=== PATIENT | female | born 2005 | race Caucasian/White ===

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

== ENCOUNTER 2023-04-04 09:05 | Outpatient (CLI) | payer OTHER, MEDICAID, SELFPAY ==
--- NOTE | ~2023-04-04 | US_ITS ---
EXAMINATION: US thyroid DATE: 04/04/2023 09:29 INDICATION: Thyroid nodule. TECHNIQUE: Multiple ultrasound images of the thyroid were obtained. COMPARISON: None. FINDINGS: The right thyroid lobe measures 4.1 x 1.4 x 1.4 cm. The left thyroid lobe measures 4.9 x 1.3 x 1.4 c m. There is normal echotexture and echogenicity throughout the thyroid gland. No discrete nodules id entified. Normal vascular flow is present. IMPRESSION: 1. Normal thyroid. Reviewed, dictated and finalized at location A. IMPRESSION: 1. Normal thyroid.
== END 2023-04-04 09:06 | disposition home or self-care (01) ==
LOC: ANHIMG 09:06
PROVIDERS: PCP Family Medicine; Visit Provider Obstetrics & Gynecology Gynecology
DX: E04.1 Nontoxic single thyroid nodule (principal)
CPT/HCPCS: 76536

== ENCOUNTER 2023-09-22 15:17 | Outpatient (CLI) | payer OTHER, MEDICAID, SELFPAY ==
[2023-09-22 15:33] LABS: Basophils Absolute Auto 0.1 K/mm3 (0.0-0.1); Basophils Percent Auto 0.6 % (0.2-1.2); Eosinophils Absolute Auto 0.2 K/mm3 (0-0.3); Eosinophils Percent Auto 1.4 % (0-4.4); Hematocrit 41.2 % (37.0-47.0); Hemoglobin 13.2 g/dL (12.0-15.0); Immature Granulocyte Absolute 0.03 K/mm3 (0.00-0.031); Immature Granulocyte Percent A 0.3 % (0-0.5); Lymphocytes Absolute Auto 2.62 K/mm3 (0.9-3.2); Lymphocytes Percent Auto 23.3 % (18.3-44.2); Mean Corpuscular Hemoglobin 29.4 pg (26-34); Mean Corpuscular Volume 91.8 fl (80-100); Mean Platelet Volume 9.4 fl (7.4-10.4); Monocytes Absolute Auto 0.6 K/mm3 (0.1-0.6); Monocytes Percent Auto 5.5 % (2.6-8.5); Neutrophils Absolute Auto 7.8 K/mm3 (1.3-6.7); Neutrophils Percent Auto 68.9 % (45.5-73.1); Platelet Count Result 380 k/mm3 (150-375); Red Blood Count 4.49 M/mm3 (4.2-5.4); Red Cell Distribution Width 12.3 % (11.5-14.5); White Blood Count 11.3 K/mm3 (4.5-10.0)
[2023-09-22 15:41] LABS: Appearance Urine Clear (Clear); Bacteria Urine None Seen /hpf; Bilirubin Urine Negative (Negative); Blood Urine 1+ (Negative); Color Urine Yellow (Yellow); Glucose Urine UA Negative (Negative); Ketones Urine Negative (Negative); Leukocyte Esterase Ur Trace LEU/UL (NEGATIVE); Nitrate Urine Negative (Negative); Non Pathogenic Casts 0-2; Protein Urine Negative (Negative); RBC Urine 0-2 /hpf (0-2); Specific Grav Ur 1.008 (1.001-1.035); Squamous Epithelial Cell Urine None seen /hpf (Few); Urobilinogen Urine 0.2 mg/dL (<2.0); pH Urine 5.5 (5.0-9.0)
[2023-09-22 15:43] LABS: Add Urine Microscopic? YES; Pregnancy On Board Control Positive; Urine Pregnancy Test Negative
[2023-09-22 16:26] LABS: Alanine Aminotransferase 14 U/L (6-35); Albumin Level 4.1 g/dL (3.7-5.6); Alkaline Phosphatase 87 U/L (45-116); Anion Gap 7 mmol/L (8-16); Aspartate Amino Transferase 20 U/L (14-36); Bilirubin,Total 0.5 mg/dL (0.2-1.3); Blood Urea Nitrogen 18 mg/dL (8-21); Calcium 9.1 mg/dL (8.9-10.7); Carbon Dioxide 28 mmol/L (22-30); Chloride 99 mmol/L (98-107); Cholesterol 122 mg/dL (0-200); Estimated Glomerular Filt Rate > 60; Glucose 90 mg/dL (65-110); HDL Direct 38 mg/dL; LDL Cholesterol Direct 71 mg/dL; Potassium 3.6 mmol/L (3.4-5.0); Sodium 134 mmol/L (134-143); Triglycerides 78 mg/dL (<150)
== END 2023-09-22 15:18 | disposition home or self-care (01) ==
LOC: ANHLAB 15:18
PROVIDERS: PCP Nurse Practitioner Family; Visit Provider Nurse Practitioner Family
DX: Z00.00 Encounter for general adult medical examination without abnormal findings (principal); Z13.29 Encounter for screening for other suspected endocrine disorder; R10.30 Lower abdominal pain, unspecified; Z13.6 Encounter for screening for cardiovascular disorders; Z13.0 Encounter for screening for diseases of the blood and blood-forming organs and certain disorders involving the immune mechanism
CPT/HCPCS: 36415; 80053; 80061; 81001; 81003; 81025; 84443; 85025

== ENCOUNTER 2023-09-25 10:41 | Outpatient (CLI) | payer OTHER, MEDICAID, SELFPAY ==
--- NOTE | ~2023-09-25 | CT_ITS ---
EXAMINATION: CT abdomen pelvis wo con DATE: 09/25/2023 10:58 INDICATION: Right lower quadrant abdominal pain. Hematuria. TECHNIQUE: Computed tomography (CT) of the abdomen and pelvis was performed without intravenous contr ast. Automated exposure control and iterative reconstruction technique were employed. The dose-length product was 183.41 mGy-cm. COMPARISON: None. FINDINGS: The visualized portions of the lung bases are clear without pneumonia or pleural effusion. The heart size is normal. No pericardial effusion. The liver is normal. The gallbladder is contracted . The spleen, pancreas, adrenal glands, and kidneys are normal. There is no urolithiasis. There is an intrauterine device in expected position. There is are no dilated loops of bowel. The visualized por tion of the appendix is normal. There are no pathologically enlarged lymph nodes. There is physiologi c fluid in the pelvis. There is levoscoliosis of thoracolumbar spine. IMPRESSION: 1. No etiology for the patient's symptoms. Reviewed, dictated and finalized at location E. TRUCK DRIVER
== END 2023-09-25 10:42 | disposition home or self-care (01) ==
LOC: ANHIMG 10:44
PROVIDERS: PCP Nurse Practitioner Family; Visit Provider Nurse Practitioner Family
DX: R10.31 Right lower quadrant pain (principal); R31.9 Hematuria, unspecified
CPT/HCPCS: 74176

== ENCOUNTER 2023-10-01 11:43 | Emergency (ER) | payer OTHER, MEDICAID, SELFPAY ==
[2023-10-01 11:45] VITALS: BP 110/62; PULSE 99; RESP 18; TEMP 36.7; O2SAT 100
[2023-10-01 12:00] LABS: Basophils Absolute Auto 0.1 K/mm3 (0.0-0.1); Basophils Percent Auto 0.7 % (0.2-1.2); Eosinophils Absolute Auto 0.1 K/mm3 (0-0.3); Eosinophils Percent Auto 1.2 % (0-4.4); Hematocrit 40.2 % (37.0-47.0); Hemoglobin 13.3 g/dL (12.0-15.0); Immature Granulocyte Absolute 0.03 K/mm3 (0.00-0.031); Immature Granulocyte Percent A 0.4 % (0-0.5); Lymphocytes Absolute Auto 2.16 K/mm3 (0.9-3.2); Lymphocytes Percent Auto 25.7 % (18.3-44.2); Mean Corpuscular HGB Conc 33.1 g/dl (32-36); Mean Corpuscular Hemoglobin 30.1 pg (26-34); Mean Platelet Volume 9.1 fl (7.4-10.4); Monocytes Absolute Auto 0.6 K/mm3 (0.1-0.6); Monocytes Percent Auto 7.3 % (2.6-8.5); Neutrophils Absolute Auto 5.4 K/mm3 (1.3-6.7); Neutrophils Percent Auto 64.7 % (45.5-73.1); Platelet Count Result 407 k/mm3 (150-375); Red Blood Count 4.42 M/mm3 (4.2-5.4); Red Cell Distribution Width 12.1 % (11.5-14.5); White Blood Count 8.4 K/mm3 (4.5-10.0)
[2023-10-01 12:13] LABS: Alanine Aminotransferase 14 U/L (6-35); Albumin Level 4.1 g/dL (3.7-5.6); Alkaline Phosphatase 86 U/L (45-116); Anion Gap 8 mmol/L (8-16); Aspartate Amino Transferase 23 U/L (14-36); Bilirubin,Total 0.4 mg/dL (0.2-1.3); Blood Urea Nitrogen 12 mg/dL (8-21); Carbon Dioxide 27 mmol/L (22-30); Chloride 105 mmol/L (98-107); Estimated Glomerular Filt Rate > 60; Glucose 85 mg/dL (65-110); Lipase 80 U/L (23-300); Potassium 4.4 mmol/L (3.4-5.0); Sodium 140 mmol/L (134-143)
[2023-10-01 13:05] LABS: Appearance Urine Cloudy (Clear); Bacteria Urine 1+ /hpf; Bilirubin Urine Negative (Negative); Blood Urine 3+ (Negative); Color Urine Dark Yellow (Yellow); Glucose Urine UA Negative (Negative); Ketones Urine Trace mg/dL (Negative); Leukocyte Esterase Ur 1+ LEU/UL (Negative); Nitrate Urine Negative (Negative); Non Pathogenic Casts 0-2; Protein Urine 1+ mg/dL (Negative); Specific Grav Ur 1.035 (1.001-1.035); Squamous Epithelial Cell Urine Moderate /hpf (Few); WBC Urine 51-100 /hpf
[2023-10-01 13:10] LABS: Add Urine Microscopic? YES
--- NOTE | 2023-10-01 13:29 | ED.ABDPAIN ---
HPI - Abdominal Pain General Chief Complaint: Abdominal Pain Stated Complaint: abdomen pain Time Seen by Provider: 10/01/23 12:46 History of Present Illness HPI narrative: Patient is a 17-year-old female presenting with abdominal pain. States that she has noted right-sided lower abdominal pain for the last week. She saw her PCP earlier this week who ordered blood work and a CT scan. Everything was unremarkable but she continued to have right-sided abdominal pain. States that she has been urinating more frequently than normal but denies dysuria. No nausea or vomiting. No diarrhea or constipation. No further complaints. Related Data Allergies Allergy/AdvReac Type Severity Reaction Status Date / Time No Known Allergies Allergy Unknown Verified 10/01/23 12:56 Review of Systems Review of Systems: All systems reviewed & are unremarkable except as noted in HPI and below PMFSH Past Medical History Medical History Anxiety Anxiety and depression Blood in urine Body mass index (BMI) of 19.0 to 19.9 in adult Constipation Encounter to establish care Low back pain Overweight (BMI 25.0-29.9) Pharyngitis and not yet delivered Weight loss, non-intentional Normal thyroid ultrasound on 04/04/2023. Surgical History Surgical History Hx of tonsillectomy 2009 [place] teeth removed 2019 Family History Family History Mother Depression Anxiety Grandparent Diabetes mellitus Heart disease Social History Social History Smoking status: Never smoker Tobacco type: e-cigarettes/vaping Alcohol intake: current Alcohol use details: social drinker prior to Substance use: never Substance use type: does not use Lack of Transportation: No Lack of Food: Never True Current Housing: I Have Housing Concerned About Future Housing: No Difficulty Paying Gas/Electric Bills: No Difficulty Paying for Meds: No Currently Unemployed: No Education: Don't Know Difficulty w/ Childcare or Family Care: No Gender identity (if verbalized by the patient): Female Spiritual care concerns: No Exam Narrative: GENERAL: Well-appearing, well-nourished, and in no acute distress. HEAD: Normocephalic, atraumatic. EYES: PERRLA and EOMI. ENT: Mucous membranes moist. NECK: Supple. CHEST: Clear to auscultation. No respiratory distress. HEART: Regular rate and rhythm ABDOMEN: Soft, nontender, nondistended EXTREMITIES: Normal range of motion. No edema. SKIN: Warm, dry, no rash. NEURO: No focal deficits. Alert and oriented x3. PSYCH: Normal mood and affect. Course Vital Signs Vital signs: Vital Signs Temperature 98.0 F 10/01/23 11:45 Pulse Rate 99 10/01/23 11:45 Respiratory Rate 18 10/01/23 11:45 Blood Pressure 110/62 10/01/23 11:45 Pulse Oximetry 100 10/01/23 11:45 Oxygen Delivery Room Air 10/01/23 11:45 Temperature 98.0 F 10/01/23 11:45 Pulse Rate 99 10/01/23 11:45 Respiratory Rate 18 10/01/23 11:45 Blood Pressure 110/62 10/01/23 11:45 Pulse Oximetry 100 10/01/23 11:45 Oxygen Delivery Room Air 10/01/23 11:45 MDM - Abdominal Pain MDM Narrative Medical decision making narrative: 17-year-old female presenting with abdominal pain. Vitals are stable. Exam is unremarkable. Blood work is unremarkable. No leukocytosis. Reviewed the chart from earlier this week. The CT abdomen pelvis showed no acute abnormalities. Her appendix was normal. Her UA is concerning for UTI. Will start her on Keflex. Advised PCP follow-up. Appropriate return precautions given. Patient is agreeable with this plan. Discharged in stable condition. Differential Diagnosis Differential diagnosis: Likely abdominal pain, constipation, gastroen
[2023-10-01] MEDS: CEPHALEXIN 500 MG CAPSULE PO (13:37)
== END 2023-10-01 14:32 | disposition home or self-care (01) ==
PROVIDERS: Emergency Medicine; Emergency Provider Emergency Medicine; PCP Nurse Practitioner Family
DX: N39.0 Urinary tract infection, site not specified (principal)
CPT/HCPCS: 36415; 80053; 81001; 81025; 83690; 85025; 87086; 99283; A9270

== ENCOUNTER 2023-11-09 00:35 | Day surgery (SDC) | payer OTHER, SELFPAY ==
[2023-11-02 15:12] VITALS: BMI 20.1
--- NOTE | 2023-11-02 15:16 | PC.NURSE ---
Report to the Outpatient Waiting Room, entrance under the green pavilion located off [facility], at time 1200 on date 11/09/23. Planned Procedure Time: 1400. Time changes happen often and if your time is changed the preop area will call you the afternoon before. - You and your visitor will be asked to self-screen and do not enter if you have any COVID symptoms. - A mask is optional within the hospital at this time. Patients may have clear liquids (water, carbonated beverages, clear teas, apple juice) until 3 hours prior to surgery with a maximum of 20 ounces. - No food from midnight until time of surgery Take the following medications with a SIP of water the morning of surgery: N/A DO NOT STOP ANY OF YOUR OTHER PRESCRIPTION MEDICATIONS PRIOR TO SURGERY ?EXCEPT THE FOLLOWING Medications to discontinue per physician: N/A Date to take last dose: N/A Please no make-up, nail ukrainian, hairspray, perfume, deodorant, or body powder the day of surgery. No jewelry (including any body piercings) or valuables the day of surgery, leave them at home. Please take a shower or bath the night before, or the morning of, surgery with an antibacterial soap. Wear comfortable, loose fitting clothing. - Jewelry must be removed prior to entering the operating room. Rings and piercings that are not removed may be cut off. - The hospital will not accept responsibility for valuables. - Please leave all valuables, including medications, at home the day of surgery. If you are going home after surgery, a licensed regional company truck driver must drive you home. - NO public transportation without another adult if you receive anesthesia. - We recommend that an adult stay with you for 24 hours following discharge. - We also recommend that you do not drive, make important decision, drink alcoholic beverages, or take any drugs that were not prescribed by your health care provider for at least 24 hours after your discharge time. Follow any additional instructions given to you from your surgeon. If you or anyone in your household have experienced Covid symptoms in the past week, please notify your surgeon or the nurse liaison at the phone number below for possible testing. Telephone instructions given to PT Hali FELTON and asked if any additional questions and then verbalized understanding. Patient advised to call surgeon office or pre surgery nurse liaison [phone] if any additional questions.
[2023-11-09] VITALS (7 sets, daily range): BP systolic 120–131; BP diastolic 57–86; PULSE 67–109; RESP 16–18; TEMP 36.2–36.7; O2SAT 98–100
[2023-11-09] MEDS: LACTATED RINGERS 1,000 ML 30 ML IV CONT ×2 (12:13→14:05)
[2023-11-09] MEDS: LIDO 1%/EPINEPHRINE 1:100,000 50 ML VIAL 30 ML INFILTRATE (12:14)
--- NOTE | 2023-11-09 12:44 | WPDHPUPDATE1 ---
History and Physical Update Update Date/Time: 11/09/23 12:44 History and Physical has been reviewed, including an updated exam of the patient. There are NO changes in the patient's condition. Risks, benefits, and alternatives have been discussed and questions answered. Patient agrees to proceed with procedure.
--- NOTE | 2023-11-09 12:54 | W.PM.PROC2 ---
Procedure Note - Detailed Date of Procedure 11/09/23 Pre-op Diagnosis micromastia Post-op Diagnosis Same Procedure Performed Bilateral Augmentation Mammaplasty Surgeon Jesse Rutledge MD Anesthesia General Findings Bilateral Jhony Turcios SoftTouch 415 cc Right - REF# [id number] SN [id number] Left - REF# [id number] SN [id number] Description of Procedure She is here today for bilateral breast augmentation. Previously and again today the risks, benefits, alternatives were discussed in extensive detail. I wanted her to be very realistic about the risks involved as well as expectations. We discussed aftercare and what to monitor for. Made sure answered all of her questions to her satisfaction today and consent was obtained. Marked in the preoperative holding area with their verification. The patient was taken to the operating room placed supine on the operating table. Anesthesia was provided by anesthesiology. A surgical time-out was taken. We cleansed the skin and 1% lidocaine and 0.25% Marcaine with epinephrine was used anesthetize as a field block. She was prepped and draped in a standard sterile fashion. Tegaderm nipple Steinberg were placed. A 15 blade used to make an incision along the inframammary fold. Dissection was continued at 45 degree angle until the chest wall as identified. I incised the pectoralis major along its inferior border and completely released the inferior border leaving the medial border intact. I created a subpectoral pocket in the appropriate dimensions based on our preoperative planning for the implant. I then copiously irrigated with saline solution and verified a strict hemostasis. Next the use a triple antibiotic and Betadine containing solution to irrigate the pocket. I washed my gloves with the triple antibiotic and Betadine solution. We washed the implant immediately upon opening it with this solution and only opened it when we needed it. I used implant funnel and no-touch technique. The implant was introduced into the pocket using the funnel. Having verified positioning of the implant this was closed using 2-0 PDS followed by 3-0 Monocryl in a running subcuticular 4-0 Monocryl followed by tissue glue. Fluffs and surgical bra were placed. Patient was awoke and taken to PACU without difficulty. All instrument sponge counts were correct at the end of the case. Estimated Blood Loss 25 Drains No Packing No Pathology None sent Complications No immediate complications Condition Stable Disposition PACU
--- NOTE | 2023-11-09 13:08 | WPDANESEPPF ---
Anes - Initial Pre Proc Eval Procedure: Operation Date: 11/09/23 14:00 Proposed Procedures p Bilateral Breast Augmentation - Jesse Rutledge MD Date/Time: 11/09/23 13:08 Surgeon: Jesse Rutledge MD Pre Op Diagnosis: micromastia Patient Data Age: 17 Gender: F Height: 1.57 m Weight: 49.4 kg Last Vital Signs Temp 98.0 F 11/09/23 12:14 Pulse 87 11/09/23 12:14 Resp 16 11/09/23 12:14 BP 120/67 11/09/23 12:14 Pulse Ox 100 11/09/23 12:14 O2 Del Method Room Air 11/09/23 12:14 Allergies Allergy/AdvReac Type Severity Reaction Status Date / Time No Known Allergies Allergy Unknown Verified 11/09/23 12:01 Home Medications Medication Instructions Recorded Confirmed Type No Home Medications 11/02/23 11/02/23 History Patient hx anesthesia problems: none Family hx anesthesia problems: none Results Review: All pre-operative results and documents have been reviewed as part of the pre-operative evaluation. [facility] Past Medical History Medical History Anxiety Anxiety and depression Blood in urine Body mass index (BMI) of 19.0 to 19.9 in adult Constipation Encounter to establish care Low back pain Overweight (BMI 25.0-29.9) Pharyngitis and not yet delivered Weight loss, non-intentional Normal thyroid ultrasound on 04/04/2023. 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 Alcohol intake: current Drinks per week: 4 Alcohol use details: WEEKENDS Substance use: never Substance use type: does not use Lack of Transportation: No Lack of Food: Never True Current Housing: I Have Housing Concerned About Future Housing: No Difficulty Paying Gas/Electric Bills: No Difficulty Paying for Meds: No Currently Unemployed: No Education: Don't Know Difficulty w/ Childcare or Family Care: No Living arrangements: with family Gender identity (if verbalized by the patient): Female Spiritual care concerns: No Anes - Eval Final PreProcedure Day of Procedure 11/09/23 13:08 Patient weight: normal Heart: regular rate and rhythm Lungs: clear to auscultation Airway: Mallampati scale class II Neurological: alert and oriented Last oral intake: >/= 8 hours ASA classification: II Emergent: no Anesthetic plan: proceed Anesthesia type and monitoring: general LMA and standard monitoring Results Review: All pre-operative results and documents have been reviewed as part of the pre-operative evaluation. Informed Consent: The patient's anesthetic plan and its attendant risks and benefits were discussed with the patient/family/POA. Questions were solicited and answers provided to the satisfaction of the patient/family/POA.
[2023-11-09] MEDS: ceFAZolin 2 GM/D5W 50 ML 2 GM/50 ML BAG IVPB (13:14)
[2023-11-09] MEDS: BUPivacaine HCL 0.25% PF 30 ML VIAL INFILTRATE (13:14)
[2023-11-09] MEDS: NACL 0.9% IRRIG POUR BOTTLE 900 ML, GENTAMICIN SULFATE INJ 160 MG, ceFAZolin 2 GM, POVI... IRRIGATION (13:14)
[2023-11-09] MEDS: TRANEXAMIC ACID 1,000MG/ISO100 1,000 MG/100 ML BAG 200 MG IVPB (13:21)
[2023-11-09] MEDS: fentaNYL CITRATE INJ (*CRX) 100 MCG/2 ML VIAL 25 MCG IV PUSH ×8 (14:17→14:39)
[2023-11-09] MEDS: ONDANSETRON INJ 4 MG/2 ML VIAL IV PUSH (14:31)
[2023-11-09] MEDS: oxyCODONE (*CRX) 5 MG/5 ML ORAL SOLN IR PO (15:17)
== END 2023-11-09 15:53 | disposition home or self-care (01) ==
PROVIDERS: PCP Nurse Practitioner Family; Visit Provider Surgery Plastic and Reconstructive Surgery
PROC: (CPT 19325; principal; 2023-11-09 14:00)
DX: Z41.1 Encounter for cosmetic surgery (principal); N64.82 Hypoplasia of breast; F41.8 Other specified anxiety disorders; Z98.890 Other specified postprocedural states; Z87.891 Personal history of nicotine dependence; Z82.49 Family history of ischemic heart disease and other diseases of the circulatory system
CPT/HCPCS: 19325; A9270; J0690; J1580; J2250; J2405; J3010; J7120

== ENCOUNTER 2024-07-22 15:27 | Emergency (ER) | payer OTHER, SELFPAY ==
[2024-07-22 15:36] VITALS: BP 105/62; PULSE 83; RESP 16; TEMP 36.9; O2SAT 100
--- NOTE | 2024-07-22 16:25 | ED.NAVMDI ---
HPI - Nausea/Vomiting/Diarrhea General Chief complaint: Nausea/Vomiting/Diarrhea Stated complaint: Headache/Light Headed/Diarrhea Time Seen by Provider: 07/22/24 15:50 Source: patient and RN notes reviewed Mode of arrival: ambulatory Limitations: no limitations History of Present Illness HPI Narrative: Patient presents today complaining of a 2 week history of headache that waxes and wanes. Today she woke up a bit lightheaded with diarrhea and nausea. She has had 3 episodes of diarrhea today that are loose in nature. Denies any blood or mucus. No fever, abdominal pain or vomiting. She has been able to drink plenty today and deep breakfast. She took some Tylenol today for her headache which has been helpful. No history of migraines or chronic headaches. Related Data Home Medications Medication Instructions Recorded Confirmed buspirone 5 mg tablet 5 mg PO DAILY 07/22/24 07/22/24 Allergies Allergy/AdvReac Type Severity Reaction Status Date / Time No Known Allergies Allergy Unknown Verified 07/22/24 15:43 Review of Systems Review of Systems: CONSTITUTIONAL: Denies body aches, fever, chills, or sweats. EYES: Denies visual changes, redness, or discharge. ENT: Denies rhinorrhea, congestion, sore throat, or otalgia. CARDIOVASCULAR: Denies chest pain, palpitations, or edema. RESPIRATORY: Denies cough or dyspnea. GASTROINTESTINAL: Denies abdominal pain, vomiting. + nausea, diarrhea GENITOURINARY: Denies dysuria or hematuria. SKIN: Denies rash, itching, or wounds. MUSCULOSKELETAL: Denies back pain, joint pain, or myalgia. NEUROLOGIC: Denies numbness, tingling, or weakness.+ headache, lightheadedness PSYCH: Denies depression or anxiety. [facility] Past Medical History Medical History Anxiety Anxiety and depression Blood in urine Body mass index (BMI) of 19.0 to 19.9 in adult Constipation Dysuria Encounter to establish care Low back pain Overweight (BMI 25.0-29.9) Pharyngitis and not yet delivered Weight loss, non-intentional Normal thyroid ultrasound on 04/04/2023. 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 Alcohol intake: current Drinks per week: 4 Alcohol use details: WEEKENDS Substance use: never Substance use type: does not use Lack of Transportation: No Lack of Food: Never True Current Housing: I Have Housing Concerned About Future Housing: No Difficulty Paying Gas/Electric Bills: No Difficulty Paying for Meds: No Currently Unemployed: No Education: Don't Know Difficulty w/ Childcare or Family Care: No Living arrangements: with family Gender identity (if verbalized by the patient): Female Spiritual care concerns: No Comments At time of signature, I have reviewed and agree with nursing past medical, surgical, social and family history unless otherwise noted. Please see nursing chart for further information. There is no relevant family history pertinent to the presenting complaint Exam Narrative: GENERAL: Well-appearing, well-nourished, and in no acute distress. HEAD: Normocephalic, atraumatic. EYES: EOMI. PERRL. No nystagmus. No redness or drainage. Conjunctivae normal. ENT: Mucous membranes pink and moist. Nares clear. No rhinorrhea. Throat normal. Uvula midline. NECK: Normal AROM. Supple. No lymphadenopathy. CHEST: No respiratory distress. Clear to auscultation. HEART: Regular rate and rhythm. No murmur appreciated. ABDOMEN: Soft, nontender, nondistended, normal active bowel sounds. EXTREMITIES: Normal range of motion. No edema. SKIN: Warm, dry, no rash. Capillary refill normal. Normal skin turgor. NEURO: No focal deficits. Alert and oriented x3. Gait steady. PSYCH: Normal affect. No signs of depression or anxiety. Course Course Level of Care: Express Care Visit Vital Signs Vital signs: Vital Signs Temperature 98.4 F 07/22/24 15:36 Pulse Rate 83 07/22/24 15:36 Respiratory Rate 16 07/22/24 15:36 Blood Pressure 105/62 07/22/24 15:36 Pulse Oximetry 100 07/22/24 15:36 Oxygen Delivery Room Air 07/22/24 15:36 Temperature 98.4 F 07/22/24 15:36 Pulse Rate 83 07/22/24 15:36 Respiratory Rate 16 07/22/24 15:36 Blood Pressure 105/62 07/22/24 15:36 Pulse Oximetry 100 07/22/24 15:36 Oxygen Delivery Room Air 07/22/24 15:36 Review MDM - Nausea/Vomiting/Diarrhea MDM Narrative Medical decision making narrative: Patient agrees to follow-up with her PCP regarding her headache. This is not the worst headache she has ever had. It is helped with Tylenol. Diarrhea is likely self-limiting. Prescription for Zofran sent to pharmacy for nausea. Discussed staying hydrated and following up with PCP in 1 week if diarrhea symptoms persist. ED precautions given. Differential Diagnosis Differential diagnosis: Likely food poisoning, gastroenteritis, dehydration and other (Cluster headache, tension headache, migraine) Critical Care Time Critical Care Time Critical Care Time: No Discharge Plan Discharge Clinical Impression: Diarrhea Qualifiers: Diarrhea type: unspecified type Qualified Code(s): R19.7 - Diarrhea, unspecified Headache Qualifiers: Headache type: unspecified Headache chronicity pattern: episodic headache Intractability: not intractable Qualified Code(s): R51.9 - Headache, unspecified Patient Disposition: Home, Self-Care Condition: Stable Instructions: Acute Headache (DC), Acute Diarrhea (ED) Additional Instructions: Your diarrhea should resolve on its own within 1 week. If does not, please follow-up with your PCP for further evaluation. As discussed, if your diarrhea symptoms worsen to include blood or mucus in your stool, severe abdominal pain, fever greater than 100.3, or feelings of dehydration, please go to the ER immediately for further evaluation. Take the Zofran if needed for nausea or vomiting. Rest and stay hydrated. Take Tylenol or ibuprofen for your headache. Please follow-up with your PCP regarding the persistent nature of your headache. Prescriptions: New ondansetron 4 mg tablet,disintegrating 4 mg PO TID PRN (Reason: nausea and vomiting) Qty: 15 0RF No Action buspirone 5 mg tablet 5 mg PO DAILY meclizine 25 mg tablet 25 mg PO TID PRN (Reason: dizziness) Qty: 30 0RF Follow-up/Referrals: John Eisenberg MD [Primary Care Provider] - Stand Alone Forms: Work/School Release IP Time of Disposition: 16:03
== END 2024-07-22 16:06 | disposition home or self-care (01) ==
PROVIDERS: Emergency Provider Nurse Practitioner; PCP Family Medicine
DX: R19.7 Diarrhea, unspecified (principal); R51.9 Headache, unspecified; Z87.891 Personal history of nicotine dependence; F41.9 Anxiety disorder, unspecified
CPT/HCPCS: 99213; G0463

== ENCOUNTER 2024-09-24 14:47 | Outpatient (CLI) | payer MEDICAID, SELFPAY ==
--- OUTSIDE RECORDS SUMMARY | 2024-09-24 14:51 | XMS_ITS | Clinical Summary ---
Author Organization [facility] Address [address] [place] [address] Care Team Providers Care Svp Chief Marketing Officer Name Role Phone Abdi Carlisle MD Primary Care Provider + [phone] Source Comments [facility],non-owned Affiliates and Associated Physician Practices is amultiple site organization consisting of ambulatory clinics and hospital sitesin [place], [place], [place] and [place]. This disclosure is being madepursuant to the Care Everywhere program and may not contain all information available regarding this patient. Last updated 18.[facility] [employer] Social History Tobacco Use Types Packs/Day Years Used Date Smoking Tobacco: Never Assessed Sex and Gender Information Value Date Recorded Sex Assigned at Not on file Gender Identity Not on file Sexual Orientation Not on file Plan of Treatment Health Maintenance Due Date Last Done Comments HIV SCREENING 12/10/2018 HPV VACCINE (1 - 3-dose series) 12/10/2018 CHLAMYDIA/GONORRHEA SCREENING 2019 MENINGOCOCCAL (Group B) VACC INE (1 of 2 - Standard) 2019 HEPATITIS C SCREENING 12/06/2021 DTAP/TDAP/TD VACCINES (1 - Tdap) 12/10/2022 HEPATITIS B VACCINE (1 of 3 - 19+ 3-dose series) 12/10/2022 COVID-19 VACCINE ( - 2023-2 5 season) 2024 INFLUENZA VACCINE (#1) 2024 DEPRESSION SCREENING 08/21/2024 ZOSTER VACCINE (1 of 2) 12/10/2053 HIB VACCINE Aged Out No longer eligi ble based on patient's age to complete this topic MENINGOCOCCAL VACCINE Aged Out No nazia iva eligible based on patient's age to complete this topic PNEUMOCOCCAL VACCINE Aged Out No long er eligible based on patient's age to complete this topic Care Teams Svp Chief Marketing Officer Relationship Specialty Start Date End Date Abdi Carlisle MD [address] [place], [place] [id number] PCP - General Pediatrics 04/14/21
--- OUTSIDE RECORDS SUMMARY | 2024-09-24 14:51 | XMS_ITS | Clinical Summary ---
Author Organization [facility] Address [address] [place] [address] Care Team Providers Care Wood Experimental Mechanic Name Role Phone Abdi Carlisle MD Primary Care Provider [phone] Allergies No known active allergies Medications ondansetron (ZOFRAN) 4 mg tablet Take 1 tablet (4 mg total) by mouth every 6 (six) hours 28 tablet 12/03/2021 Active emtricitabine-te nofovir disoproxil fumerate (TRUVADA) 200-300 mg per tablet Take 1 tablet by mouth daily 30 tablet 12/03/2021 Active metroNIDAZOLE (FLAGYL) 500 mg tablet Take 1 tablet (500 mg total) by mouth 2 (two) times a day 14 tablet 12/03/2021 Active raltegravir (ISENTRESS) 400 mg tablet Take 1 tablet (400 mg total) by mouth 2 (two) times a day 60 tablet 12/03/2021 Active doxycycline (VIBRAMYCIN) 100 mg capsule Take 1 tablet/caps ule (100 mg total) by mouth 2 (two) times a day 20 capsule 12/03/2021 Active Social History Tobacco Use Types Packs/Day Years Used Date Smoking Tobacco: Never Assessed Personal Safety Answer Date Recorded Getting School Help Needed Not on file 10/21 Comments No Sex and Gender Information Value Date Recorded Sex Assigned at Not on file Legal Sex Female 7:51 PM CDT Gender Identity Not on file Sexual Orientation Not on file Last Filed Vital Signs Vital Sign Reading Time Taken Comments Blood Pressure 138/63 12/02/2021 8:14 PM CDT Pulse 120 12/02/2021 8:14 PM CDT Temperature 36.2 ??C (97.2 ??F) 12/02/2021 8:14 PM CD T Respiratory Rate 18 12/02/2021 8:14 PM CDT Oxygen Saturation 100% 12/02/2021 8:15 PM CDT Inhaled Oxygen Concentration - - Weight 62.6 kg (138 lb) 12/02/2021 8:15 PM CDT Height 167.6 cm (5' 6 ) 12/02/2021 8:15 PM CDT Body Mass Index 22.27 12/02/2021 8:15 PM CDT Plan of Treatment Health Maintenance Due Date Last Done Comments Depression Screening 2003 DTaP/Tdap/Td Vaccine (1 - Tdap) 12/10/2014 Varicella Vaccines (1 of 2 - 13+ 2-dose series) 12/10/2016 HPV Vaccines (1 - 3-dose series) 12/10/2018 Meningococcal B Vaccine (1 o f 2 - Patient Seeks Protection) 2019 Hepatitis B Screening 12/10/2021 Regular Well Visit/Exam 18-64 12/10/2021 Influenza Vaccine (#1) 2024 Hepatitis C Screening Completed 12/03/2021 Meningococcal Vaccine Aged Out No nazia iva eligible based on patient's age to complete this topic Pneumococcal vaccine <65 Aged Out No longer eligible based on patient's age to complete this topic Procedures Procedure Name Priority Date/Time Associated Diagnosis Comments HEPATITIS PANEL, ACUTE Routine 12/03/2021 12:31 AM CDT from Last 3 Months or Most Recently Relevant to Health Maintenance Results * Hepatitis panel, acute (12/03/2021 12:31 AM CDT) Hep A IgM Nonreactive Nonreactive AKRINA ROSENBERG (CHIQUITA) Comment: Interpretive Data: If Hep A IgM Ab is reported as Equivocal, a new sample should be drawn in two weeks for testing. Current interpretive data was last revised on 19. Testing performed by: [facility], [address] [place] [address], [place]., [address] Hep B core IgM Nonreactive Nonreactive Siomara ROSENBERG ([place]ITA) Comment: Interpretive Data If HepB Core IgM Ab is reported as Equivocal, a new sample should be drawn in two weeks for testing. Current interpretive data was last revised on 19. Testing performed by: [address] [address] Hep C Ab Nonreactive Nonreactive KARINA ROSENBERG ([place]) Comment: Interpretive Data Nonreactive: Antibodies to HCV not detected. Does NOT exclude the possibility of recent exposure to HCV. Equivocal: Equivocal for HCV antibodies. Supplemental molecular testing will be automatically performed to determine infection status in accordance with current CDC screening recommendations. ?? Reactive: Positive for HCV antibodies. ??This may represent current or past HCV infection. Supplemental molecular testing will be automatically performed to determine ??current infection status in accordance with current CDC screening recommendations. Interpretive data was last revised on 2019. Testing performed by: [facility], [address] [place] [address]., [id number] HepBsAg Nonreactive Nonreactive KARINA ROSENBERG ([place]ITA) Comment:Testing performed by : [facility], [address] [place] [address]., [id number] Blood 12/03/2021 12:3 1 AM CDT 12/03/2021 10:04 AM CDT Omaira Rolle MD LAB MICROBIOLOGY - GENERA L ORDERABLES Final Result KARINA ROSENBERG ([place]ITA) [address] [facility] Department [place] [address] from Last 3 Months or Most Recently Relevant to Health Maintenance Insurance [employer] OOS Care Teams Wood Experimental Mechanic Relationship Specialty Start Date End Date Abdi Carlisle MD PCP - General 12/02/21
--- OUTSIDE RECORDS SUMMARY | 2024-09-24 14:51 | XMS_ITS | Referral Summary ---
Author Organization [facility] Address [address] [place] [address] Care Team Providers Care Electronic Communications Technician Name Role Phone Abdi Carlisle MD Primary Care Provider + [phone] Source Comments [facility],non-[facility] Affiliates and Associated Physician Practices is amultiple site organization consisting of ambulatory clinics and hospital sitesin [place], [place], [place] and [place]. This disclosure is being madepursuant to the Care Everywhere program and may not contain all information available regarding this patient. Last updated 18.[facility] Social History Tobacco Use Types Packs/Day Years Used Date Smoking Tobacco: Never Assessed Sex and Gender Information Value Date Recorded Sex Assigned at Not on file Gender Identity Not on file Sexual Orientation Not on file Plan of Treatment Not on file Care Teams Electronic Communications Technician Relationship Specialty Start Date End Date Abdi Carlisle MD [address] [place] [address] PCP - General Pediatrics 04/14/21
--- OUTSIDE RECORDS SUMMARY | 2024-09-24 14:51 | XMS_ITS | Patient Health Summary ---
Author Organization [facility] Address [address] [place] [address] Care Team Providers Care Doughnut Fryer Name Role Phone Abdi Carlisle MD Primary Care Provider + [phone] Note from [facility],non-owned Affiliates and Associated Physician Practices is amultiple site organization consisting of ambulatory clinics and hospital sitesin [place], [place], [place] and [place]. This disclosure is being madepursuant to the Care Everywhere program and may not contain all information available regarding this patient. Last updated 18.[facility] Social History Tobacco Use Types Packs/Day Years Used Date Smoking Tobacco: Never Assessed Sex and Gender Information Value Date Recorded Sex Assigned at Not on file Gender Identity Not on file Sexual Orientation Not on file Care Teams Doughnut Fryer Relationship Specialty Start Date End Date Abdi Carlisle MD [address] [place] [id number] PCP - General Pediatrics 04/14/21
--- OUTSIDE RECORDS SUMMARY | 2024-09-24 14:51 | XMS_ITS | Continuity of Care Document ---
Author Organization [facility] Address [address] [place] [address] Phone Care Team Providers Care Tank Calibrator Name Role Phone Kiersten BURT, Kiesha Unavailable Unavailable Allergies, Adverse Reactions, Alerts Substance Reaction Status Criticality No Known Allergies Active No Inform ation Advance Directives Directive Yes / No Effective Date File Name No Information Encounters Encounter Description Practice Location Reason(s) For Visit Diagnoses Date Provider Providers Copied on Encounter [facility], [address], [facility], tel:[phone] [facility] Nondisplaced fracture of middle phalanx of right middle finger, subsequent encounter for fracture with routine healing 7 Kiersten Kiesha. [address], [id number] . tel: [phone] [facility], [address], [facility], tel:[phone] [facility] Closed nondisplaced fracture of middle phalanx of right middle finger, initial encounter 0 7 Burch Kiesha. [address] [facility], [facility] [address], [place], [id number] . tel: [phone] Family History Family Member Type Diagnosis Age At Onset No Information Payers Payer name Insurance type Covered alliance party ID Authoriza alexclemente(s) [facility] [id number] Social History Type Description Quantity Date Captured Comments Sex Female Smoking Status No Information Chief Complaint And Reason For Visit No Information Reason For Referral Reason For Referral No Information Plan Of Treatment Date Type Action Status Referral Ordered: RADEX FNGR MINIMUM 2 VIEWS RT ordered History Of Present Illness Encounter Date Complaint History Of Prese nt Illness No Information Functional Status Date Functional Assessmen t No Information Instructions Date Instruction Additional Infor mation No Information Assessments Type Assessment Date assessment Nondisplaced fractur e of middle phalanx of right middle finger, subsequent encounter for fracture with routine healing Patient Care Teams Name Effective Dates (start - stop) Status Members No Information
--- OUTSIDE RECORDS SUMMARY | 2024-09-24 14:51 | XMS_ITS | Continuity of Care Document ---
Author Organization [facility] Address [address] [place] [address] [place] [address] Phone Care Team Providers Care Quality Assurance Manager Name Role Phone Payne OD, Rj Unavailable Unavailable Procedures Procedure Date Eye Exam & Treatment Refraction Eye Exam & Treatment Refraction Advance Directives Directive Yes / No Effective Date File Name No Information Encounters Encounter Description Practice Location Reason(s) For Visit Diagnoses Date Provider Providers Copied on Encounter [facility], [address] [place] [address] [address], [place], [place], [id number], tel:[phone] [facility] [place] No Information 0-201 0 Payne OD Rj. [address] [facility] [address], [place], [address], [place]. tel:[phone] [facility], [address] [place] [address] [address], [place], [place], [id number], tel:[phone] [facility] No Information December-0 9-200 9 Payne OD Rj. [address] [facility] [address], [address], [place], [address], [place]. tel:[phone] Family History Family Member Type Diagnosis Age At Onset No Information Payers Payer name Insurance type Covered libertarian ID Authoriza tion(s) Medicaid [facility] [id number] Social History Type Description Quantity Date Captured Comments Sex Female Smoking Status No Information Chief Complaint And Reason For Visit No Information Reason For Referral Reason For Referral No Information History Of Present Illness Encounter Date Complaint History Of Prese nt Illness No Information Functional Status Date Functional Assessmen t No Information Instructions Date Instruction Additional Infor mation No Information Assessments Type Assessment Date No Information Patient Care Teams Name Effective Dates (start - stop) Status Members No Information
--- OUTSIDE RECORDS SUMMARY | 2024-09-24 14:51 | XMS_ITS | Clinical Summary ---
Author Organization [facility] Address [address] [place] [address] Phone Care Team Providers Care Engineering Administrator Name Role Phone Mariposa Sands MD Primary Care Provider [phone] Active Problems Problem Noted Date Diagnosed Date Adjustment disorder with mixed anxiety and depre ssed mood 03/16/2017 Family History Medical History Relation Name Comments No Known Problems Brother Jorge Luis No Known Problems Father Mann No Known Problems Mother Dawna Relation Name Status Comments Brother [place] Alive Father [place] Alive Mother Dawna Alive Social History Tobacco Use Types Packs/Day Years Used Date Smoking Tobacco: Never Alcohol Use Standard Drinks/Week Comments No 0 (1 standard drink = 0.6 oz pur e alcohol) Sexually Active Control Partners Comments Never Male Comments Unknown Sex and Gender Information Value Date Recorded Sex Assigned at Not on file Legal Sex Female 8:01 PM CDT Gender Identity Not on file Sexual Orientation Not on file Plan of Treatment Health Maintenance Due Date Last Done Comments Hepatitis C Virus (HCV) Screening 2003 TdaP Immunization 2003 Human Papillomavirus (HPV) Immunization (1 - 3-dose series) 12/10/2018 Meningococcal B Immunization (1 of 2 - Standard) 2019 Hepatitis B Immunization (1 of 3 - 19+ 3-dose series) 12/10/2022 Influenza Immunization (#1) 2024 SARS-COV-2 Immunization ( - season) 2024 Respiratory Syncytial Virus (RSV) Immunization (Adult) (1 - 1-dose 75+ series) 12/10/2078 Meningococcal Immunization (ACWY) Aged Out No longer eligible based on patient's age to complete this topic Pneumococcal Immunization Combined Aged Out No longer eligible based on patient's age to complete this topic Rotavirus Immunization Aged Out No lo nger eligible based on patient's age to complete this topic Insurance [facility] Care Teams Engineering Administrator Relationship Specialty Start Date End Date Mariposa Sands MD [address] [place] [address] [address] [place] [id number] PCP - General Pediatrics 03/16/17
--- OUTSIDE RECORDS SUMMARY | 2024-09-24 14:51 | XMS_ITS | Referral Summary ---
Author Organization [facility] Address [address] [place] [address] Care Team Providers Care Certified Marine Mechanic Name Role Phone Abdi Carlisle MD Primary Care Provider [phone] Allergies No known active allergies Medications ondansetron [...] 12/02/2021 8:15 PM CDT Plan of Treatment Not on file Procedures Procedure Name Priority Date/Time Associated Diagnosis Comments HEPATITIS PANEL, ACUTE Routine 12/03/2021 12:31 AM CDT from Last 3 Months or Most Recently Relevant to Health Maintenance Results * Hepatitis panel, acute (12/03/2021 12:31 AM CDT) Hep A IgM Nonreactive Nonreactive KARINA ROSENBERG ([place]) Comment: Interpretive Data: If Hep A IgM Ab is reported as Equivocal, a new sample should be drawn in two weeks for testing. Current interpretive data was last revised on 19. Testing performed by: [address] [address] Hep B core IgM Nonreactive Nonreactive C SARAH ROSENBERG ([place]) Comment: Interpretive Data If HepB Core IgM Ab is reported as Equivocal, a new sample should be drawn in two weeks for testing. Current interpretive data was last revised on 19. Testing performed by: , [address] [place] [address]., [address] Hep C Ab Nonreactive Nonreactive [facility] ([place]) Comment: Interpretive Data Nonreactive: Antibodies to [...] last revised on 2019. Testing performed by: , [address] [place] [address]., [id number] HepBsAg Nonreactive Nonreactive KARINA CHTE ([place]) Comment:Testing performed by : , [address] [place] [address], [place]., [address] Blood 12/03/2021 12:3 1 AM CDT 12/03/2021 10:04 AM CDT us Omaira Rolle MD LAB MICROBIOLOGY - GENERA L ORDERABLES Final Result KARINA ROSENBER[facility] ([place]) [address] [facility] Department [place] [address] from Last 3 Months or Most Recently Relevant to Health Maintenance Insurance [employer] Care Teams Certified Marine Mechanic Relationship Specialty Start Date End Date Abdi Carlisle MD PCP - General 12/02/21
[2024-09-24 15:48] LABS: Influenza A QL RT-PCR Negative (Negative); Influenza B QL RT-PCR Negative (Negative); RSV RNA, RT-PCR Negative (Negative); SARS-CoV-2 RNA PCR Negative (Negative)
== END 2024-09-24 14:48 | disposition home or self-care (01) ==
LOC: ANHLAB 14:49
PROVIDERS: PCP Nurse Practitioner Family; Visit Provider Nurse Practitioner Family
DX: R68.89 Other general symptoms and signs (principal)
CPT/HCPCS: 87637